=== PATIENT | female | born 1930 | race Caucasian/White ===

== ENCOUNTER 2017-06-12 11:30 | Observation (INO) ==
[2017-06-12 12:09] VITALS: BMI 25.0
[2017-06-12] MEDS ORDERED: D5-1/2NS 1,000 ML IV SCH ×2 (13:15→17:16)
[2017-06-12] MEDS ORDERED: FUROSEMIDE 40 MG/4 ML INJECTION IVP ONE (13:15)
[2017-06-12] MEDS ORDERED: DEXTROSE 50% SYRINGE 50ml (1 AMP) IVP ONE (13:15)
[2017-06-12] MEDS ORDERED: INSULIN REGULAR, HUMAN 100 UNIT/ML INJECTION IV ONE (13:15)
--- OUTSIDE RECORDS SUMMARY | 2017-06-12 13:32 | External Medical Summary | Continuity of Care Document ---
:1930 Author Organization [facility], [facility] Allergies Medications Problems Date Dx Coded Attending Type Code Diagnosis Diagnosed By 11/01/2014 Clau LOPEZ MD 728.87 MUSCLE WEAKNESS LUISANA Hughes 12/01/2014 Clau LOPEZ MD 728.87 MUSCLE WEAKNESS LUISANA Hughes 12/01/2014 JESSICA WILLIAM D 840.4 SPRAIN ROTATOR LUISANA Hughes CUFF 01/01/2015 Clau LOPEZ MD 728.87 MUSCLE WEAKNESS LUISANA Hughes 01/01/2015 Clau LOPEZ MD 840.4 SPRAIN ROTATOR LUISANA Saul CUFF Procedures Code Description Performed By Performed On LUISANA LOPEZ MD 10/04/2014 26879 SIOMARA LOPEZ MD, LUISANA Hughes 10/04/2014 [id number] MANUAL VERONICA LOPEZ MD, LUISANA Hughes 10/04/2014 G0283 STIM OTHER THAN SHAGGY LOPEZ MD, LUISANA Hughes 10/11/2014 11078 SIOMARA LOPEZ MD, LUISANA Hughes 10/11/2014 [id number] MANUAL VERONICA LOPEZ MD, LUISANA Hughes 10/11/2014 G0283 STIM OTHER THAN SHAGGY LOPEZ MD, LUISANA Hughes 10/13/2014 [id number] SIOMARA LOPEZ MD, LUISANA Hughes 10/13/2014 08786 MANUAL VERONICA LOPEZ MD, LUISANA Hughes 10/13/2014 G0283 STIM OTHER THAN SHAGGY LOPEZ MD, LUISANA Hughes 11/03/2014 [id number] SIOMARA LOPEZ MD, LUISANA Hughes 11/03/2014 [id number] MANUAL VERONICA LOPEZ MD, LUISANA Hughes 11/03/2014 G0283 STIM OTHER THAN SHAGGY LOPEZ MD, LUISANA Hughes 11/07/2014 53282 SIOMARA LOPEZ MD, LUISANA Hughes 11/07/2014 [id number] MANUAL VERONICA LOPEZ MD, LUISANA Hughes 11/07/2014 G0283 STIM OTHER THAN SHAGGY LOPEZ MD, LUISANA Hughes 11/10/2014 61848 SIOMARA LOPEZ MD, LUISANA Hughes 11/10/2014 [id number] MANUAL VERONICA LOPEZ MD, LUISANA Hughes 11/10/2014 G0283 STIM OTHER THAN SHAGGY LOPEZ MD, LUISANA Hughes 11/14/2014 83500 ULTRASOUND VERONICA LOPEZ MD, LUISANA 11/14/2014 57522 MANUAL VERONICA LOPEZ MD, LUISANA 11/14/2014 G0283 STIM OTHER THAN SHAGGY LOPEZ MD, LUISANA W 11/16/2014 31671 ULTRASOUND VERONICA LOPEZ MD, LUISANA 11/16/2014 77928 MANUAL THERAPY CORDELL LOPEZ MD, LUISANA 11/16/2014 G0283 STIM OTHER THAN SHAGGY LOPEZ MD, LUISANA W 11/21/2014 16206 ULTRASOUND VERONICA LOPEZ MD, LUISANA W 11/21/2014 88430 MANUAL THERAPY CORDELL LOPEZ MD, LUISANA W 11/21/2014 G0283 STIM OTHER THAN SHAGGY LOPEZ MD, LUISANA 11/23/2014 60924 ULTRASOUND VERONICA LOPEZ MD, LUISANA 11/23/2014 16868 MANUAL THERAPY CORDELL LOPEZ MD, LUISANA W 11/23/2014 G0283 STIM OTHER THAN SHAGGY LOPEZ MD, LUISANA 11/28/2014 70156 ULTRASOUND VERONICA LOPEZ MD, LUISANA Hughes 11/28/2014 36757 MANUAL VERONICA LOPEZ MD, LUISANA W 11/28/2014 G0283 STIM OTHER THAN SHAGGY LOPEZ MD, LUISANA 11/30/2014 12093 ULTRASOUND VERONICA LOPEZ MD, LUISANA 11/30/2014 09718 THERAPEUTIC EXERCISES JESSICA WILLIAM, LUISANA 11/30/2014 02433 MANUAL VERONICA LOPEZ MD, LUISANA 12/05/2014 53272 ULTRASOUND VERONICA LOPEZ MD, LUISANA 12/05/2014 13430 MANUAL VERONICA LOPEZ MD, LUISANA 12/05/2014 G0283 STIM OTHER THAN SHAGGY LOPEZ MD, LUISANA Hughes 12/07/2014 36162 ULTRASOUND VERONICA LOPEZ MD, LUISANA 12/07/2014 87586 MANUAL THERAPY CORDELL LOPEZ MD, LUISANA 12/07/2014 G0283 STIM OTHER THAN WOUND Results Encounters ACCT No. Visit Discharge Status Pt. Type Provider Facility Loc./Unit Complaint Date/Time [id number] 01/02/2015 01/31/2015 DIS Outpatishashi JESSICA 00:01:00 23:59:00 LUISANA lang MD [id number] 12/02/2014 01/01/2015 DIS Outpatishashi JESSICA 00:01:00 23:59:00 LUISANA lang MD [id number] 11/02/2014 12/01/2014 DIS Outpatien JESSICA 00:01:00 23:59:00 t LUISANA WILLIAM [id number] 10/02/2014 11/01/2014 DIS Outpatien JESSICA 00:01:00 23:59:00 t LUISANA WILLIAM [id number] 09/04/2014 09/04/2014 CLS Outpatien JESSICA 00:01:00 23:59:59 LUISANA lang MD [id number] 08/22/2014 09/03/2014 DIS Outpatien JESSICA 08:39:00 23:59:00 LUISANA lang MD [id number] 10/02/2012 11/01/2012 DIS Outpatien AIYENOWO 00:01:00 23:59:00 t FERNANDA WILLIAM
--- NOTE | 2017-06-12 16:36 | History and Physical ---
CHIEF COMPLAINT Hyperkalemia. HISTORY OF PRESENT ILLNESS Patient is an 86-year-old female who has been admitted to [facility] on an outpatient basis at my request due to hyperkalemia as well as acute renal failure. This patient was seen by me yesterday with a chief complaint of approximately a 3-4 week history of coughing. On the chest x-ray done in the office, we did see a lesion in the left upper lobe. We had patient scheduled for CT chest. However, after speaking with Dr. Jassi Chan, the radiologist, who actually found out patient had a CT chest done for that particular lesion as far back as 2015; it has been pretty stable for the last couple of years. Therefore we did not end up doing the CT scan of the chest. However, the BMP was done which shows a creatinine of 2.5 today which is a new finding, and potassium of 6.4. We did repeat the potassium earlier this morning and it stayed about 6.4 as well. Therefore patient was being admitted to [facility] as a direct admission for management of hyperkalemia and acute renal failure. PAST MEDICAL HISTORY 1. Diffuse cystic mastopathy. 2. Dyslipidemia. 3. Hypothyroidism. 4. Hypertension. 5. Proteinuria. 6. Vitamin D deficiency. FAMILY HISTORY Polycystic kidney disease, renal failure, myocardial infarction, diabetes mellitus, and lupus. SOCIAL HISTORY Patient is , with three grown-up children. She doesn't smoke or drink alcohol or use any illicit drugs. REVIEW OF SYSTEMS Patient denies any chest pain, no orthopnea, no PND, no leg swelling. Denies any hematochezia, no melena. Patient denies any TIA or cerebrovascular accident symptoms. Denies any evidence of syncope or presyncope. No back pain. No hemoptysis, no hematemesis, no hematochezia or melena. MEDICATIONS 1. Albuterol inhaler 2 puffs q.i.d. for five days and then p.r.n. 2. Zithromax pack started yesterday. 3. Vitamin D 1000 IU one tablet daily. 4. Vitamin B12 one tablet daily. 5. Levothyroxine 25 mcg one tablet daily. 6. Metoprolol 25 mg one tablet in the morning and two tablets at bedtime. 7. Multivitamin one tablet daily. 8. Calcium/vitamin D one tablet daily. ALLERGIES TYLENOL, SULFA, ATORVASTATIN. PHYSICAL EXAMINATION GENERAL: Patient looks well developed, well nourished. She doesn't appear to be in acute distress. HEENT: Essentially unremarkable. NECK: Supple. No JVD, no bruit. LUNGS: Clear to auscultation bilaterally. No wheezing, no rales. CARDIOVASCULAR: Regular rate and rhythm. No murmur. No S3 or S4 gallop. ABDOMEN: Soft, nontender. No masses palpable. EXTREMITIES: No cyanosis, no clubbing, no edema. NEURO EXAM: Grossly intact. SKIN: Slightly dry. LABORATORY This morning, potassium 6.2, creatinine 2.6. Magnesium 1.8. Calcium 10.0. Glucose 93. GFR is 17, meaning stage IV chronic kidney disease. CBC with hemoglobin of 10.8, that was up from yesterday. Liver function tests are normal. ASSESSMENT 1. Acute kidney failure superimposed on chronic kidney disease. 2. Acute hyperkalemia. 3. Acute dehydration. 4. Hypertension, chronic. PLAN Admit patient to [facility] on outpatient basis. Treat patient for hyperkalemia with IV fluids, IV Lasix, IV D50 push as well as IV insulin treatment. Continue with IV fluids. Followup electrolytes particularly potassium 1-2 hours from now. Patient will be on telemetry. EKG did show left [id number], will request for old EKGs to see if this is a new finding or a chronic finding. Additional lab today will be a UA. BRETT
[2017-06-13] MEDS: D5-1/2NS 1,000 ML IV SCH ×2 (01:32→11:06)
[2017-06-13] MEDS ORDERED: LEVOTHYROXINE 25 MCG TABLET PO SCH (06:30)
[2017-06-13] MEDS ORDERED: FUROSEMIDE 20 MG/2 ML INJECTION IVP ONE (08:13)
[2017-06-13 08:51] VITALS: BP 165/109; PULSE 67; RESP 16; TEMP 97.9; O2SAT 96
--- NOTE | 2017-06-13 09:55 | Ultrasound Report ---
Indication: acute kidney injury PROCEDURE: US renal BI: Encounter: Initial Comparison: Chest CT dated August 24, [address] abdomen pelvis dated January 27, 2013 Technique: Grayscale and color Doppler sonographic imaging of both kidneys and bladder was performed. FINDINGS: Abnormal enlarged polycystic kidneys are seen bilaterally without obvious renal mass or gross hydronephrosis. Numerous cysts measuring up to 10 cm on each kidney. No obvious stone disease. Bladder appears sonographically normal without focal mass. Bilateral ureteral jets noted. Right kidney measures 16.8 cm in length. Left kidney measures 12.5 cm in length. Impression: No obvious hydronephrosis. .
--- NOTE | 2017-06-14 16:42 | Discharge Summary ---
FINAL DIAGNOSES 1. Acute hyperkalemia. 2. Acute renal injury. 3. Chronic kidney disease stage II-III. 4. Hypertension. 5. Hypothyroidism. 6. Vitamin D deficiency. REASON FOR ADMISSION The patient is an 86-year-old female who was admitted to [facility] on the day of admission at my request due to abnormal chemistry, particularly a potassium of 6.4 initially and also a creatinine of 2.4. The patient's baseline creatinine is 1.4 to 1.5. I had seen the patient the day before for acute bronchitis. She had been started on Zithromax as well as albuterol inhaler. PHYSICAL EXAM She looked comfortable. Exam was essentially unremarkable. LABORATORY Initial potassium 6.4, then 6.2. Creatinine 2.6, magnesium 1.8, GFR 17. Hemoglobin 10.8. IMAGING Chest x-ray was done one day prior to this admission and showed essentially no acute cardiopulmonary findings as per the radiologist's interpretation. HOSPITAL COURSE The patient was admitted to the general medical floor on an outpatient basis under the care of Dr. Jerome Solorzano. The patient received IV fluids, D50 IV push plus 10 units of insulin, IV Lasix. She responded very well to treatment. Her potassium on the day of dismissal is 5.1. Her blood pressure showed quite elevation during this hospitalization. The patient is medically stable at this time to be dismissed to home. DISCHARGE MEDICATIONS 1. Metoprolol 25 mg two tablets b.i.d. 2. Levothyroxine 25 mcg one tablet daily. 3. Zithromax 250 mg one tablet daily for an additional four days. 4. Vitamin D 1000 IU one tablet daily. 5. Vitamin B12 one tablet daily. 6. Multivitamin one tablet daily. 7. Albuterol inhaler two puffs four times daily for five days, then p.r.n. after. FOLLOWUP The patient will follow up with Dr. Solorzano in one week from yesterday. She will report to [facility] Friday morning for a BMP. [facility]
== END 2017-06-13 14:40 | disposition home or self-care (01) ==
LOC: MED
PROVIDERS: ADMIT Family Medicine; ATTEND Family Medicine